=== PATIENT | female | born 1970 | race Caucasian/White ===

== ENCOUNTER 2017-06-03 12:05 | Emergency (ER) | payer SELFPAY ==
--- NOTE | ~2017-06-03 | ER ---
PATIENT'S NAME: VELIA BASSETT [facility] AGE: 46 Y [address] ROOM: [place] [id number] LOCATION: [facility] ADMIT DATE: 06/03/2017 ER/Outpatient Report DISCHARGE DATE: 06/03/2017 FAMILY PHYSICIAN: PHYSICIAN, NO ATTENDING PHYSICIAN: Ethan Tran Time of Arrival: 1205 hours. Time of Evaluation: 1205 hours. CHIEF COMPLAINT: Wound VAC not functioning. HISTORY OF PRESENT ILLNESS: The patient was seen on 05/24/2017 after being attacked by a dog, was taken to the OR and had incising and draining done of injuries to the right upper extremity and right lower extremity by Dr. Paez. She was then hospitalized, discharged on 05/28/2017 with a wound VAC in place. She states today after re-dressing her areas that she developed blockage warning on the wound VAC machine. She presented to the ER. She denies having any pain. States that she has appointment tomorrow with the integrity specialist. ALLERGIES: TRAZODONE. CURRENT MEDICATIONS: None. PAST MEDICAL HISTORY: Benign. PAST SURGICAL HISTORY: Negative. SOCIAL HISTORY: She does smoke a half to 1 pack per day. Drinks alcohol on a regular basis. Dr. Paez was her orthopedic surgeon. REVIEW OF SYSTEMS: All negative other than those mentioned in the HPI. PHYSICAL EXAMINATION: GENERAL: She is awake, alert, and oriented x4. SKIN: [place], warm, and dry. RESPIRATIONS: Even and nonlabored. LUNG: Sounds are clear throughout. PATIENT'S NAME: VELIA BASSETT [facility] AGE: 46 Y [address] ROOM: [place] [address] LOCATION: [facility] ADMIT DATE: 06/03/2017 ER/Outpatient Report DISCHARGE DATE: 06/03/2017 FAMILY PHYSICIAN: PHYSICIAN, NO ATTENDING PHYSICIAN: Ethan Tran HEART: Regular rate and rhythm. The patient's Clay wrap dressings were removed, blockage air on the machine did stop and it was pumping at 100. Dressings look clean, well sealed. They were rewrapped and braces reapplied. The patient tolerated the procedure well. Wound VAC was functioning without any difficulty. IMPRESSION: Multiple wounds of the right upper extremity and right lower extremity requiring wound VAC. PLAN: Home. Continue current plan. Keep the scheduled appointment tomorrow. If any time she has problems again with the machine, she is to give for contact number a phone call or return to the ER. She verbalized understanding. ISIAH CARPENTER APRN FOR [facility]/yanni /[id number] d: t: 06/03/17 1950, OUTPATIENT REPORT
[~2017-06-03 12:05] MED LIST: AUGMENTIN 875-1 EACH PO; COLACE100 MG PO; LOVENOX 4040 MG/0.4 SUB-Q; MILK OF MA400 MG/5 M PO; NICODERM CQ1 EAC1 TRANS; NORCO 5-325 TA1 EACH PO; PROBIOTIC1 EAC1
== END 2017-06-03 13:00 | disposition disaster alternative care site (69) ==
LOC: GMED 12:05
DX: S41.151D Open bite of right upper arm, subsequent encounter (principal); S81.851D Open bite, right lower leg, subsequent encounter; F17.210 Nicotine dependence, cigarettes, uncomplicated; Z88.8 Allergy status to other drugs, medicaments and biological substances; W54.0XXD Bitten by dog, subsequent encounter